=== PATIENT | female | born 1970 | race Caucasian/White ===

== ENCOUNTER 2023-11-07 12:59 | Emergency (ER) | payer OTHER ==
[2023-11-07 14:16] LABS: SARS-CoV-2 NAA Rapid Test Not Detected (NotDetected)
[2023-11-07] MEDS ORDERED: predniSONE 20 MG TAB ONE (14:28)
[2023-11-07] MEDS ORDERED: Ipratropium Bromide 2.5 ml Neb ONE (14:29)
[2023-11-07] MEDS ORDERED: Albuterol 2.5 MG (3 mL) NEB ONE (14:29)
== END 2023-11-07 16:35 | disposition home or self-care (01) ==
LOC: CSHERS 12:59
DX: J10.1 Influenza due to other identified influenza virus with other respiratory manifestations (principal); J98.01 Acute bronchospasm; F17.210 Nicotine dependence, cigarettes, uncomplicated
CPT/HCPCS: 71045; J7512; J7611